=== PATIENT | female | born 1970 | race Caucasian/White ===

== ENCOUNTER 2022-06-18 13:49 | Outpatient (CLI) | payer OTHER, SELFPAY | END 2022-06-18 13:50 | disposition home or self-care (01) | PROVIDERS: PCP Family Medicine; Visit Provider Family Medicine | DX: Z00.00 Encounter for general adult medical examination without abnormal findings (principal); Z13.6 Encounter for screening for cardiovascular disorders; Z11.59 Encounter for screening for other viral diseases; Z12.4 Encounter for screening for malignant neoplasm of cervix | CPT/HCPCS: 80053; 80061; 86803 ==

== ENCOUNTER 2022-10-08 11:25 | Outpatient (CLI) | payer OTHER, SELFPAY ==
--- NOTE | 2022-10-08 11:30 | CRLHL7_ITS ---
For Patients: As a result of the Cures Act, medical imaging exams and procedure reports are released immediately into your electronic medical record. You may view this report before your referring provider. If you have questions, please contact your health care provider. BILATERAL SCREENING MAMMOGRAM WITH COMPUTER-AIDED DETECTION AND TOMOSYNTHESIS TECHNIQUE: CC and MLO views were obtained. These mammographic images have been obtained using full-field digital technique. These mammographic images were interpreted with the benefit of computer-aided detection. Breast Tomosynthesis was used in this interpretation. COMPARISON FILM: 08/21/21, 08/18/20, 06/10/19. FINDINGS: There are scattered areas of fibroglandular density IMPRESSION: There is no radiographic evidence for malignancy. ASSESSMENT: BI-RADS Category 1: Negative RECOMMENDATION: Routine screening mammogram in 1 year. A lay language report of this examination will be provided to the patient. Donovan Ross M.D. Diagnostic Radiologist [email or web address] MARYJANE/juanis / be/Dictated by: Donovan Ross MD @ 10/09/2022 9:10:00 AM (Electronically Signed)
== END 2022-10-08 11:26 | disposition home or self-care (01) ==
LOC: MAMMO 11:29
PROVIDERS: PCP Family Medicine; Visit Provider Family Medicine
DX: Z12.31 Encounter for screening mammogram for malignant neoplasm of breast (principal)
CPT/HCPCS: 77063; 77067

== ENCOUNTER 2023-08-23 14:15 | Outpatient (CLI) | payer OTHER, SELFPAY | END 2023-08-23 14:16 | disposition home or self-care (01) | PROVIDERS: PCP Family Medicine; Visit Provider Family Medicine | DX: Z13.220 Encounter for screening for lipoid disorders (principal); Z13.228 Encounter for screening for other metabolic disorders | CPT/HCPCS: 80053; 80061 ==

== ENCOUNTER 2023-10-10 11:31 | Outpatient (CLI) | payer OTHER, SELFPAY ==
--- NOTE | 2023-10-10 11:30 | CRLHL7_ITS ---
For Patients: As a result of the Cures Act, medical imaging exams and procedure reports are released immediately into your electronic medical record. You may view this report before your referring provider. If you have questions, please contact your health care provider. BILATERAL SCREENING MAMMOGRAM WITH COMPUTER-AIDED DETECTION AND TOMOSYNTHESIS TECHNIQUE: CC and MLO views were obtained. These mammographic images have been obtained using full-field digital technique. These mammographic images were interpreted with the benefit of computer-aided detection. Breast Tomosynthesis was used in this interpretation. COMPARISON FILM: 10/08/22, 08/21/21, 08/18/20. FINDINGS: There are scattered areas of fibroglandular density IMPRESSION: There is no radiographic evidence for malignancy. ASSESSMENT: BI-RADS Category 1: Negative RECOMMENDATION: Routine screening mammogram in 1 year. A lay language report of this examination will be provided to the patient. JADIEL DIOP M.D. Diagnostic/Nuclear Medicine Radiologist [email or web address] ELICIA:[email or web address] Transcribed: 2:29 p.mSergio espinosa/Dictated by: Jadiel Diop MD @ 10/10/2023 12:08:00 PM (Electronically Signed)
--- OUTSIDE RECORDS SUMMARY | 2023-10-10 11:34 | XMS_ITS | Data Portability ---
Author Organization [facility] - [facility], [id number] Address [address] [place] [id number] Care Team Providers Care Technical Services Representative Name Role Phone MORALES BERNARDA Primary Care Provider Assessment Encounter Date Assessment Date Assessment LastModified by Organization Details LastModified Time 07/25/2022 07/25/2022 I spent a total of 20 minutes providing care for this patient including: preparing to see the patient, obtaining a medical history, completing a medically appropriate physical exam, completing documentation of visit information and plans in the EMR, counseling the patient and/or caregiver regarding her diagnosis, treatment options and follow up plans, as well as any necessary communication of subsequent test results to the patient, reviewing medical records, counseling the patient and/or caregiver regarding health maintenance recommendations [email or web address] Not available 07/25/2022 21:22:17 Plan of Treatment Reminders Order Date Submit Date Provider Last Modified By Organization Details Last Modified Time Details Appointments None recorded. Lab None recorded. Referral urologist referral - Please call pt to schedule. Thank you. 2022 023 [email or web address] 7 [facility], [address] [facility] [address], [place], [address], 3 10:17:17 Procedures None recorded. Surgeries exam under anesthesia (SURG) 2022 023 [email or web address] Not available 11:44:20 labiaplasty (SURG) 2022 023 [email or web address] 27 [facility], [address] [facility] [address], [place], [address], 12:28:31 Imaging None recorded. Medication Orders None recorded. Patient TargetsNo targets recorded. Patient Instructions Encounter Date Encounter Id Patient Instructions Last Modified By Organization Details Last Modified Time 07/25/2022 [id number] Documentation assistance provided by Akbar Parker, scribing for {{MD Dr. Bernarda Anaya, DO*}}. The patient and family/friends if present were apprised of the use of a scribe through remote audio and all parties consented to conducting the visit in this manner. [email or web address] Not available 07/25/2022 16:09:15 Reason for Referral Urologist Referral for Incre ased frequency of urination Increased frequency of urination Please call pt to schedule. Thank you. Referring Physician: Bernarda Holm WRAP CHECKER, Encounter Date: 07/25/2022 Results Created Date Observation Date Name Description Value Unit Range Abnormal Flag LastModifiedBy Organization Detail LastModifiedTime Result Notes None recorded. Problems Name Status Onset Date Resolution Date Notes Provider Name and Address Organization Details Recorded Time Rosacea Active Akbar Riser null, [facility] 07/03/2022 13:55:22 Venous varices Active Akbar Riser null, [facility] 07/03/2022 13:55:38 Eczema Active Akbar Riser null, [facility] 07/03/2022 13:56:00 Heart murmur Active Akbar Riser null, [facility] 07/03/2022 13:57:30 Genital warts Active Akbar Riser null, [facility] 07/03/2022 15:16:43 Replacement of mitral valve Active Thickening per echo @ [facility] 05/14/19, EF was 60% and o/w normal Kaitlynhiag Wise null, [facility] [facility] 07/25/2022 12:53:00 Depressive disorder Active PaNhiag Wise null, [facility] [facility] 07/25/2022 13:06:38 Problem Notes None recorded. Procedures Surgical History Date Name Laterality Status Provider Name and Address Organization Details Recorded Time 08/21/19 23 procedure on vulva completed Bryant Whartong null, [facility] 08/29/2022 12:18:40 06/19/19 23 [facility] 07/25/2022 13:05:49 08/22/19 22 Date of Last Mammogram completed Akbar Riser null, [facility] 07/03/2022 15:15:08 03/27/20 16 hysteroscopy with endometrial ablation completed [facility] 07/25/2022 12:53:34 04/01/19 12 excision of labial cyst completed [facility], [facility] 07/25/2022 12:53:45 04/01/18 91 extraction of wisdom tooth completed [facility], [facility] 07/25/2022 12:53:47 04/01/18 82 release of urethral stricture completed [facility] 07/25/2022 12:54:18 Imaging Results None recorded. Procedure Notes None recorded. Medical Equipment None Reported. Allergies Allergen ID Allergen Name Allergen Category Reaction Reaction Severity Criticality Documentation Date Start Date Code Code System Note Provider Name and Address Organization Details Recorded Time 95991 Medicinal product containin g penicilli n and acting as antibacte rial agent (product) medicatio n hives Not available Not available 11/05/2019 79033 05 SNOMED Not Available [facility] 05:09:10 Medications Name Sig Start Date Stop Date Status Note LastModified by Organization Details LastModified Time doxycycli ne hyclate 100 mg capsule TAKE 1 CAPSULE BY MOUTH TWICE DAILY FOR 10 DAYS 07/25 completed Not Available Not Available Not Available ibuprofen 800 mg tablet TAKE 1 TABLET (800 MG) BY MOUTH EVERY 6 HOURS NEEDED FOR OTHER (MILD AND/OR INFLAMMA TORY PAIN) 08/29 completed Not Available Not Available Not Available fluoxetin e 10 mg capsule TAKE 1 CAPSULE BY MOUTH DAILY 07/25 completed heart palpitat ions Not Available Not Available Not Available bupropion HCl XL 150 mg 24 hr tablet, extended release TAKE 1 TABLET BY MOUTH EVERY MORNING. active Not Available Not Available No t Available Paxlovid 300 mg (150 mg x 2)-100 mg tablets in a dose pack TAKE 3 TABLETS BY MOUTH EVERY MORNING AND 3 TABS EVERY EVENING FOR 5 DAYS 07/25 completed Not Available Not Available Not Available Vitals Date Recorded Body height Body mass index (BMI) Body weight Systolic blood pressure Diastolic blood pressure Provider Name and Address Organization Details Last Updated DateTime 07/25/2022 165.1 cm 29 kg/m2 86747.07 g 130 mm[Hg] 74 mm[Hg] Bryant Wise [facility] 3 15:39:53 Date Recorded Body height Body mass index (BMI) Body weight Systolic blood pressure Diastolic blood pressure Provider Name and Address Organization Details Last Updated DateTime 08/29/2022 165.1 cm 28.1 kg/m2 86425.11 g 122 mm[Hg] 76 mm[Hg] Bryant Wise [facility] 3 15:39:35 Social History Question Answer Notes LastModified by Organizat ion Details LastModified Time Tobacco Smoking Status Never Smoker Bryant theodore [facility] 07/25/2022 12:51:48 Do You Have An Advance Directive? Yes Does Have A Health Care Directive Information not available 11/09/2019 What Is Your Level Of Alcohol Consumption? Occasional 1-2 Per Month Information not available 07/25/2022 What Is Your Level Of Caffeine Consumption? Moderate 8-10 Oz Daily Information not available 07/25/2022 Are You Currently Employed? 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 Yes Information not available 07/25/2022 What Is Your Relationship Status? From Pancreatic Cancer 02/16/22. Information not available 07/25/2022 Are You Sexually Active? Yes Information not available 07/25/2022 Do You Use Any Illicit Or Recreational Drugs? No Information not available 07/25/2022 Sex: Unknown Functional Status Question Answer Note LastModified by Organizat ion Details LastModified Time What is your exercise level? Moderate walking/ru nning 3-4 days per week Information not available 07/25/2022 Mental Status None recorded. Family History Relationship Description Onset Age of this Age Resolved Age Notes Sister Asthma Sister Depressive disorder Paternal Aunt Malignant tumor of breast doing genetic testing for H2 gene (noted 07/25/22) Maternal Grandmother Alzheimer's disease Maternal Grandfather Malignant neoplastic disease Father Myocardial infarction Medical History Condition Response Neurology- Headaches/Migraines Y ID- Usual childhood diseases- Chicken Po x Y Dermatology-Eczema/Psoriasis Y Psych- PMS/PMDD Y Gynecological History Statement/Question Response History of Abnormal PAP Yes Total lifetime partners Less than 5 Date of Last Mammogram 08/21/2021 Date of LMP Sexual Orientation Heterosexual Date of Last Diabetes Screening 06/19/19 23 Date of last bone density Sexually Active N Age at Menarche: 9 Date of Last Colonoscopy Age at first intercourse 18 Current Control Method None Urinary Incontinence Symptoms Y What is the patient's current relationsh ip to the practice? Consultation Date of Last Pap Smear 06/18/2022 Date of Last Cholesterol Screening 06/18 Obstetrics History GPAL:G 3 P 2 0 1 2 Type Value Multiple Births 0 Full Term 2 Induced 0 Spontaneous 1 Premature 0 Living 2 Ectopics 0 Total 3 Past Encounters Encounter ID Performer Location Encounter Start Date Encounter Closed Date Diagnosis/Indication Diagnosis SNOMED-CT Code [id number] Bernarda Holm DO [id number] [address] [address] 07/25/2022 15:23:54 07/26/2022 11:42:24 Sebaceous cyst of skin 393725267 Increased frequency of urination [id number] Bernarda Holm DO [id number] [address] [address] 08/29/2022 15:26:37 08/30/2022 10:29:02 Postoperative visit [id number] Health Concerns Section Related Observation LastModified by Organization Shobha barahona LastModified Time None Recorded Concern Status LastModified by Organization Details LastModified Time None Recorded Advance Directives Directive Y: Does have a Health Care D irective Payers Encounter Date Sequence Insurance Name Policy Number Policy Mora Covered Member ID Mora Member ID Guarantor Name 07/25/2022 1 [facility] [id number] Johana Berry Rodriguez [id number] Johana Jamal Michael 08/29/2022 1 [facility] [id number] Johana Berry Michael [id number] Johana Jamal Michael Notes Date Note Type Note Provider Name and Address Organization Details Recorded Time 07/25/2022 text/html HPI Notes: Vaginal/ Vulvar Problem ([facility]) Reported by patient. Referred By: PCP; Dyllan Morales * Location: external; vulvar left * Quality: irritation; cyst * Severity: moderate * Timing: Onset: gradual; constant Notes: - She mentions that if she put it between her fingers or there is rubbing then she has pain. - Denies bleeding or drainage from the cyst. Frequent urination: - Notes that she can urinate and a decent amount will come out, then 10 minutes later she will have to urinate again without drinking anything in that time. When she does urinate the second time, she only urinates a small amount. - She also has urinary urgency, [place] [address] [address], [place], [address], [facility] 07/25/2022 21:24:30 08/29/2022 text/html HPI Notes: Surgery Date: 08/20/22. Patient presents for her first post-operative evaluation. Surgical procedure: Resection of left vulvar cyst and revision of left labial laceration. Indication: 4 mm left labial cyst close to clitoris, seperation of left labia, cervical dysplasia. Pathology findings: benign. The procedure was done by: Bernarda Holm DO. She [place] no [place] [address] [facility],[address], [place], [address], [facility] [facility] 08/29/2022 17:19:17 OBGyn Episode Ob Episode Information Episode Created Date Number of Fetuses Patient Bloodtype Patient rh Status Prepregnancy Weight lbs Domestic Partner Domestic Partner Phone Father Name Senior Property Manager Status 07/26/19 1 CLOSED Fetus Data First Name Last Name Admitted to NICU Weight (g) Sex Living Outcome Pediatric Complications Fetus ID Race Codes Race Delivery Type 3656.85 8704 M Full Term [id number] Jose G Calculation Initial Jose G Date Initial Exam Date Initial Exam Provider Initial Ultrasound Date Last Menstrual Period Date Ultra Sound Weeks Gestation 0 Eighteen To Twenty Week Jose G Update Ultra Sound Date Fundal Height At Umbil Quickening Date Ultra Sound Latest Weeks Gestation Final Jose G Confirmed By Final Jose G Confirmed Date Final Jose G Date Ultra Sound Latest Days Gestation 0 0 Menstrual History Last Menstrual Date Menses Monthly On Bcp Conception Prior Menses Frequency Hcg Plus Date Menarche Onset Age Delivery Information Delivery Date Delivery Type Labor Anesthesia Weeks Gestation Incision Type Labor Labor Length Hrs Delivered By Post Complications Tubal Sterilization Discharge Date Comments 7 40 18 Discharge Information Feeding Method Contraceptive Method Maternal HG B and HCT Levels Ob Episode Information Episode Created Date Number of Fetuses Patient Bloodtype Patient rh Status Prepregnancy Weight lbs Domestic Partner Domestic Partner Phone Father Name Senior Property Manager Status 07/26/19 1 CLOSED Fetus Data First Name Last Name Admitted to NICU Weight (g) Sex Living Outcome Pediatric Complications Fetus ID Race Codes Race Delivery Type 3742.13 4 M Full Term [id number] Jose G Calculation Initial Jose G Date Initial Exam Date Initial Exam Provider Initial Ultrasound Date Last Menstrual Period Date Ultra Sound Weeks Gestation 0 Eighteen To Twenty Week Jose G Update Ultra Sound Date Fundal Height At Umbil Quickening Date Ultra Sound Latest Weeks Gestation Final Jose G Confirmed By Final Jose G Confirmed Date Final Jose G Date Ultra Sound Latest Days Gestation 0 0 Menstrual History Last Menstrual Date Menses Monthly On Bcp Conception Prior Menses Frequency Hcg Plus Date Menarche Onset Age Delivery Information Delivery Date Delivery Type Labor Anesthesia Weeks Gestation Incision Type Labor Labor Length Hrs Delivered By Post Complications Tubal Sterilization Discharge Date Comments 2 40 35 Discharge Information Feeding Method Contraceptive Method Maternal HG B and HCT Levels
--- OUTSIDE RECORDS SUMMARY | 2023-10-10 11:34 | XMS_ITS | Clinical Summary ---
Author Organization [place] Address [facility] [place] [address] Care Team Providers Care Anchor Tack Puller Name Role Phone Unavailable Primary Care Provider Unavailabl e Allergies Active Allergy Reactions Criticality Noted Date Comments Penicillins Hives 09/19/2004 Medications Medication Sig Dispensed Refills Start Date End Date Status buPROPion (WELLBUTRIN XL) 300 MG 24 hr tablet Take 300 mg by mouth every morning Active ibuprofen (ADVIL/MOTRIN) 800 MG tabletIndications: Sebaceous cyst Take 1 tablet (800 mg) by mouth every 6 hours as needed for other (mild and/or inflammatory pain) 30 tablet 08/20/2022 Active senna-docusate (SENOKOT-S/PERICOL NICHOLAS) 8.6-50 MG tabletIndications: Sebaceous cyst Take 1-2 tablets by mouth 2 times daily 30 tablet 08/20/2022 Active ondansetron (ZOFRAN ODT) 4 MG ODT tabIndications:Narayan aceous cyst Take 1 tablet (4 mg) by mouth every 8 hours as needed for nausea 4 tablet 08/20/2022 Active Active Problems Problem Noted Date Diagnosed Date CARDIOVASCULAR SCREENING; LDL GOAL LESS THAN 160 01/29/2010 Immunizations Name Administration Dates Next Due COVID-19 MONOVALENT 12+ (Pfizer) 07/04/2020,05/30 Family History Medical History Relation Comments Alcohol/Drug Maternal Grandfather alcoholism Cancer Maternal Grandfather larynx canc er Cerebrovascular Disease Maternal Grandmother Relation Status Comments Father Alive Maternal Grandfather (Age 78) cancer of larynx, alcoholic and drug addict Maternal Grandmother Alive Mother Alive Paternal Grandfather (Age 81) Paternal Grandmother (Age 79) series of stroke Sister Alive Son Alive [place] Social History Tobacco Use Types Packs/Day Years Used Date Smoking Tobacco: Never Tobacco Cessation:Counseling Given: Not Answered Alcohol Use Standard Drinks/Week Comments Yes 0 (1 standard drink = 0.6 oz pur e alcohol) seldom Adolescent Education Answer Date Record ed Getting School Help Needed Not on file 01/15 Sex and Gender Information Value Date Recorded Sex Assigned at Female 06/09/2020 9:53 PM CLIENT RENEWAL SPECIALIST Gender Identity Female 06/09/2020 9:53 PM CLIENT RENEWAL SPECIALIST Sexual Orientation Straight 06/09/2020 9: 53 PM CLIENT RENEWAL SPECIALIST Last Filed Vital Signs Vital Sign Reading Time Taken Comments Blood Pressure 111/70 08/20/2022 2:00 PM CDT Pulse 64 08/20/2022 2:00 PM CDT Temperature 36 ??C (96.8 ??F) 08/20/2022 1:36 PM CDT Respiratory Rate 16 08/20/2022 1:36 PM CDT Oxygen Saturation 98% 08/20/2022 2:00 PM CDT Inhaled Oxygen Concentration - - Weight 75.8 kg (167 lb) 08/20/2022 11:23 AM CDT Height 165.1 cm (5' 5) 08/20/2022 11:23 AM CDT Body Mass Index 27.79 08/20/2022 11:23 AM CDT Plan of Treatment Health Maintenance Due Date Last Done Comments ADVANCE CARE PLANNING 1970 ANNUAL REVIEW OF HM ORDERS 1970 CT COLONOGRAPHY 1970 FIT 1970 FLEX SIG 1970 GLUCOSE 1970 sDNA (Cologuard) 1970 COLONOSCOPY 1980 COLORECTAL CANCER SCREENING 1980 HIV SCREENING 1985 HEPATITIS C SCREENING 1988 HEPATITIS B IMMUNIZATION (1 of 3 - 19+ 3-dose series) 1989 LIPID 2010 ZOSTER IMMUNIZATION (1 of 2) 2020 YEARLY PREVENTIVE VISIT 05/04/2021 05/04/2020 MAMMO SCREENING 08/18/2022 08/18/2020, 05/30, 05/07/2018, Additional history exists COVID-19 Vaccine (3 - season) 2022 07/04/2020, 06/13/2020 PHQ-2 (once per calendar year) 2023 INFLUENZA VACCINE (Season Ended) 2023 01/14/2020, 12/20/2019, 12/20/2019 DTAP/TDAP/TD IMMUNIZATION (2 - Td or Tdap) 04/02/2024 04/02/2014 PAP 06/18/2025 06/18/2022, 05/31, 07/31/2011, Additional history exists HPV IMMUNIZATION Aged Out No longer e ligible based on patient's age to complete this topic IPV IMMUNIZATION Aged Out No longer e ligible based on patient's age to complete this topic MENINGITIS IMMUNIZATION Aged Out No l onger eligible based on patient's age to complete this topic Pneumococcal Vaccine: Pediatrics (0 to 5 Years) and At-Risk Patients (6 to 64 Years) Aged Out No longer eligible based on patient's age to complete this topic RSV MONOCLONAL ANTIBODY Aged Out No l onger eligible based on patient's age to complete this topic Procedures Procedure Name Priority Date/Time Associated Diagnosis Comments MA SCREENING BILATERAL W/ CECIL Routine 08/18/2020 11:29 AM CDT Visit for screening mammogram ABSTRACT PAP (HIM EXTERNAL RESULT) Routine 07/31/2011 from Last 3 Months or Most Recently Relevant to Health Maintenance Results * MA Screen Bilateral w/Cecil (08/18/2020 11:29 AM CDT) Anatomical Region Laterality Modality Breast Bilateral Mammography Impressions 08/18/2020 2:34 PM CDT IMPRESSION: BI-RADS CATEGORY: 1 - ??Negative RECOMMENDED FOLLOW-UP: Annual Mammography. Exam results letter mailed to patient. REVA VIDAL MD Narrative 08/18/2020 2:34 PM CDT SCREENING MAMMOGRAM, BILATERAL, DIGITAL w/CAD and TOMOSYNTHESIS - 08/18/2020 11:29 AM BREAST SYMPTOMS: Intermittent nipple tenderness. COMPARISON: ??06/10/19, 09/19/2017. BREAST DENSITY: Heterogeneously dense. COMMENTS: No findings of suspicion for malignancy. Procedure Note Reva Vidal MD - 08/18/2020 SCREENING MAMMOGRAM, BILATERAL, DIGITAL w/CAD and TOMOSYNTHESIS - 08/18/2020 11:29 AM BREAST SYMPTOMS: Intermittent nipple tenderness. COMPARISON: 06/10/19, 09/19/2017. BREAST DENSITY: Heterogeneously dense. COMMENTS: No findings of suspicion for malignancy. IMPRESSION: BI-RADS CATEGORY: 1 - Negative RECOMMENDED FOLLOW-UP: Annual Mammography. Exam results letter mailed to patient. REVA VIDAL MD Alessia Santos [facility] [place] ORD ERABLES * ABSTRACT PAP-NO CHARGE (07/31/2011) Impressions MISYS - 07/31/2011 ??Normal pap [facility], 07/2011 Patient Reported LAB - HIM EXTERNAL R ESULT Performing Organization Address City/State/[facility] Co de Phone Number MISYS from Last 3 Months or Most Recently Relevant to Health Maintenance
--- OUTSIDE RECORDS SUMMARY | 2023-10-10 11:34 | XMS_ITS | Encounter Summary ---
Author Organization [place] Address [facility] [place] [address] Care Team Providers Care Mechanical Service Representative Name Role Phone Alessia Santos Unavailable Unavailabl e Alessia Santos Primary Care Provider Unav ailable Encounter Details Date Type Department Care Team (Late st Contact Info) Description 07/05/2020 Documentation Only INTERFACED REPORT Unknown, Provider Social History Tobacco Use Types Packs/Day Years Used Date Smoking Tobacco: Never Alcohol Use Standard Drinks/Week Comments Yes 0 (1 standard drink = 0.6 oz pur e alcohol) seldom Sex and Gender Information Value Date Recorded Sex Assigned at Female 06/09/2020 9:53 PM NURSE EPIDEMIOLOGIST Gender Identity Female 06/09/2020 9:53 PM NURSE EPIDEMIOLOGIST Sexual Orientation Straight 06/09/2020 9: 53 PM NURSE EPIDEMIOLOGIST documented as of this encounter Plan of Treatment Not on file documented as of this encounter Visit Diagnoses Not on filedocumented in this encounter Care Teams Mechanical Service Representative Relationship Specialty Start Date End Date Alessia Santos PCP - General 08/09/12 08/23/22 Alessia Santos 08/03/11 08/23/22 documented as of this encounter
--- OUTSIDE RECORDS SUMMARY | 2023-10-10 11:34 | XMS_ITS | Referral Summary ---
Author Organization [place] Address [facility] [place] [address] Care Team Providers Care Police Service Technician Name Role Phone Unavailable Primary Care Provider [...] Next Due COVID-19 MONOVALENT 12+ (Pfizer) 07/04/2020,05/30 Social History Tobacco Use Types Packs/Day Years Used Date Smoking Tobacco: Never Tobacco Cessation:Counseling Given: Not Answered Alcohol Use Standard Drinks/Week Comments Yes 0 (1 standard drink = 0.6 oz pur e alcohol) seldom Adolescent Education Answer Date Record ed Getting School Help Needed Not on file 01/15 Sex and Gender Information Value Date Recorded Sex Assigned at Female 06/09/2020 9:53 PM EMPLOYMENT ASSISTANT Gender Identity Female 06/09/2020 9:53 PM EMPLOYMENT ASSISTANT Sexual Orientation Straight 06/09/2020 9: 53 PM EMPLOYMENT ASSISTANT Last Filed Vital Signs Vital Sign Reading [...] 08/20/2022 11:23 AM CDT Plan of Treatment Not on file Procedures Procedure Name Priority Date/Time Associated Diagnosis [...] to patient. REVA VIDAL MD Alessia Santos [facility] MAMMOGRAPHY ORD ERABLES * ABSTRACT PAP-NO CHARGE (07/31/2011) Impressions MISYS - 07/31/2011 ??Normal pap [facility], 07/2011 Patient Reported LAB - HIM EXTERNAL R ESULT Performing Organization Address City/State/[facility] Co de Phone Number MISYS from Last 3 Months or Most Recently Relevant to Health Maintenance
--- OUTSIDE RECORDS SUMMARY | 2023-10-10 11:34 | XMS_ITS | Clinical Summary ---
Author Organization [facility] Address [place], [place] [address] Care Team Providers Care Hospital Nurse Liaison Name Role Phone Unavailable Primary Care Provider Unavailabl e Allergies Active Allergy Reactions Criticality Noted Date Comments Penicillins Rash 03/22/2016 Medications Medication Sig Dispensed Refills Start Date End Date Status triamcinolone (ARISTOCORT; KENALOG) 0.1 % creamIndications:Manager Of Tax vern eczema Apply topically to affected area(s) 3 times daily. 80 g 3 05/04/2020 Active metroNIDAZOLE (METROGEL) 0.75 % gelIndications:Rosace a Apply topically to affected area(s) 2 times daily. 45 g 3 05/04/2020 Active Active Problems Problem Noted Date Diagnosed Date Mitral valve problem 05/04/2020 Chronic eczema 05/04/2020 Rosacea 05/04/2020 Varicose veins of both lower extremities 021 Resolved Problems Problem Noted Date Diagnosed Date Resolved Date Menorrhagia 03/27/2016 05/04/2020 Immunizations Name Administration Dates Next Due Influenza, IIV3 (Age >=3 years) 12/20/2019 Tdap 04/02/2014 Family History Medical History Relation Name Comments Coronary artery disease Father massive PR age 70 Good Health Mother Alcoholism Paternal Grandmother Stroke Paternal Grandmother Aneurysm Paternal Uncle Asthma Sister Depression Sister Relation Name Status Comments Father massive PR age 70 Mother Alive Paternal Grandmother Paternal Uncle Sister Alive Social History Tobacco Use Types Packs/Day Years Used Date Smoking Tobacco: Never Smokeless Tobacco: Never Alcohol Use Standard Drinks/Week Comments Yes 0 (1 standard drink = 0.6 oz pur e alcohol) PHQ-2 Answer Date Recorded PHQ-2 TOTAL SCORE 0 05/04/2020 Social Connections Answer Date Recorded Frequency of Communication with Friends and Fami ly Not on file 04/01/2021 Financial Resource Strain Answer Date R ecorded Difficulty of Paying Living Expenses Not on file 04/01/2021 Difficulty of Paying Living Expenses Not on file 04/01/2021 Sex and Gender Information Value Date Recorded Sex Assigned at Not on file Gender Identity Not on file Sexual Orientation Not on file Obstetrics History Last Filed Vital Signs Vital Sign Reading Time Taken Comments Blood Pressure 104/66 05/04/2020 8:26 AM WAREHOUSE MAN Pulse 66 05/04/2020 8:26 AM WAREHOUSE MAN Temperature 36.8 ??C (98.2 ??F) 06/12/2019 3:38 PM CD T Respiratory Rate 12 05/04/2020 8:26 AM WAREHOUSE MAN Oxygen Saturation 98% 06/26/2018 2:54 PM CDT Inhaled Oxygen Concentration - - Weight 73.5 kg (162 lb) 05/04/2020 8:26 AM WAREHOUSE MAN Height 163.8 cm (5' 4.5) 05/04/2020 8:26 AM WAREHOUSE MAN Body Mass Index 27.38 05/04/2020 8:26 AM WAREHOUSE MAN Plan of Treatment Health Maintenance Due Date Last Done Comments HIV for age 15-65 1985 Hepatitis C screening for age 18-79 1988 Zoster (shingles) series for age 50+ (1 of 2) 2020 BMI (ht and wt on same day) for age 18+ 05/04/2021 05/04/2020 Depression screening for age 12+ 05/04/2021 05/04/2020, 05/04/2020 Mammogram for age 45-75 08/18/2021 08/19/19 21 (Verified in Care Everywhere or Patient Record), 05/07/2018 COVID-19 vaccine series ( season) 2022 07/04/2020, 06/13/2020 Influenza for age 50-64 12/01/2023 12/20/2019 Tetanus booster 04/02/2024 04/02/2014 Lipids for age 45-75 05/04/2025 05/04/2020 Pap test for age 21-65 06/18/2025 3, 06/18/2022, 05/17/2021, Additional history exists Colonoscopy through age 75 06/23/2031 06/22/2021 Tdap Completed 04/02/2014 Pneumococcal series for age 6-64 Aged Out No longer eligible based on patient's age to complete this topic Procedures Procedure Name Priority Date/Time Associated Diagnosis Comments HPV THIN PREP Routine 06/18/2022 1:55 PM CDT SCAN-COLONOSCOPY 06/22/2021 11:0 0 AM CDT LIPID PANEL Routine 05/04/2020 8:30 AM WAREHOUSE MAN Screening for lipid disorders SCAN-MAMMOGRAPHY REPORT 05/07/2018 12:00 PM WAREHOUSE MAN from Last 3 Months or Most Recently Relevant to Health Maintenance Results * HPV HIGH RISK (06/18/2022 1:55 PM CDT) TYPE 16 Negative Negative 06/21/2022 11:26 AM CDT [facility] TYPE 18 Negative Negative 06/21/2022 11:26 AM CDT [facility] OTHER HIGH RISK TYPES Negative Negative 06/21/2022 11:26 AM CDT [facility] Other (Cervical/Vagina l) 06/18/2022 1:55 PM CDT 06/20/2022 8:46 AM CDT Narrative [facility] - 06/21/2022 11:26 AM CDT HPV types 16, 18, 31, 33, 35, 39, 45, 51, 52, 56, 58, 59, 66 and 68 DNA were undetectable or below the pre-set threshold. Methodology: Federico Elvie 4800 HPV Test Jhoana Lee MD MICROBIOLOGY [facility] [address] [place] [address], * SCAN-COLONOSCOPY (06/22/2021 11:00 AM CDT) Narrative Procedure Note Donovan Quach MD - 06/22/2021 10:07 AM CDT [facility] [address], [address], [place] [address] Patient Name: Johana Rodriguez Gender: Female Exam Date: 06/22/2021 Visit Number: [id number] Age: 50 Years 5 Months Date of : 1970 Attending MD: Donovan Quach MD Medical Record#: [id number] ----- Procedure: Colonoscopy Indications: Colorectal cancer screening Referring MD: Analisa Amor MD Primary MD: Analisa Amor MD Medications: Intra Procedure Medications: Patient received monitored anesthesia care. Complications: No immediate complications Procedure: An examination of the heart and lungs was performed and found to be withinacceptable limits. The patient was therefore deemed a reasonablecandidate for endoscopy and monitored anesthesia care. The risks and benefits of the procedure were explained to the patient.After obtaining informed consent, the patient received monitoredanesthesia care and I passed the scope without difficulty via the rectum to the ileum. The appendiceal orificeand ic valve were identified. The scope was retroflexed during theexamination The quality of the prep was excellent (Miralax/Gatorade/2tablets Bisacodyl/Magnesium Citrate). This was a complete examination throughout the entire colon. Findings: Normal finding. Location - ileum. Normal finding. Location - entire colon. Anal canal: normal Impression: Colon cancer screening Normal colonoscopy and terminal ileum Plan Repeat colonoscopy in 10 years. If you have signs or symptoms of lower GI illness or a new diagnosis ofcolon cancer in an immediate family member, you should contact your GIprovider or your primary provider to discuss whether your next examshould be repeated sooner. We will attempt to contact you at appropriate intervals via U.S. mail. Wemay not be able to find you or contact you at that time, therefore youshould know that the responsibility for following our recommendation restswith you. If you don't hear from us at the time your procedure is due,please contact our office to schedule an appointment. If your contactinformation should change, please contact our office so that we can updateyour records. Return to your primary care provider as needed. Recommendation Comments: Call if questions or concerns arise in theinterim. Electronically signed by: Donovan Quach MD 06/22/2021 Medications: Medication Dose Sig Description PRN Status PRN Reason Comments doxycycline hyclate 100 mg capsule 100 mg take 1 capsule by oral route 2times every day N taking as directed Noritate 1 % topical cream 1 % apply by topical route every day a thinlayer to the affected area(s) N taking as directed Zyrtec 10 mg capsule 10 mg take 1 Tablet by Oral route once N taking asdirected Allergies: Medication Name Ingredient Reaction Comment Penicillin PENICILLIN Hives Vital Signs: Date Time Systolic Diastolic Height Weight BMI 06/22/2021 1030 AM 116 70 65 in 157.79 26.30 Race: White Preferred Language: Thai cc: Analisa Amor MD cc: Analisa Amor MD [facility] [phone] Donovna Quach MD OTHER * LIPID PANEL (05/04/2020 8:30 AM WAREHOUSE MAN) CHOLESTEROL,TOTAL 191 100 - 199 mg/dL 05/04/2020 12:16 PM WAREHOUSE MAN [facility] TRIGLYCERIDES 70 <150 mg/dL 05/04/2020 12:16 PM WAREHOUSE MAN [facility] HDL CHOLESTEROL 60 >40 mg/dL 12:16 PM WAREHOUSE MAN [facility] NON-HDL CHOLESTEROL 131 <145 mg/dl 05/04/2020 12:16 PM WAREHOUSE MAN [facility] CHOL/HDL RATIO 3.18 <4.50 05/04/2020 12:16 PM WAREHOUSE MAN [facility] LDL CHOLESTEROL 117 <=130 mg/dL 05/04/2020 12:16 PM WAREHOUSE MAN [facility] PROVIDER ORDERED STATUS RANDOM 05/04/2020 12:16 PM WAREHOUSE MAN [facility] Blood BLOOD SPECIMEN / Unknown Venipuncture / Unknown 05/04/2020 8:30 AM WAREHOUSE MAN 05/04/2020 10:54 AM WAREHOUSE MAN Alessia Santos MD CHEMISTRY [facility] [place] [address] [id number] [place] [address] * SCAN-MAMMOGRAPHY REPORT (05/07/2018 12:00 PM WAREHOUSE MAN) Anatomical Region Laterality Modality Other Scanner OTHER from Last 3 Months or Most Recently Relevant to Health Maintenance Advance Directives * Full Code (Latest Code Status on File) Date Activated Date Inactivated Comments 03/27/2016 6:48 AM 03/27/2016 12:03 PM
--- OUTSIDE RECORDS SUMMARY | 2023-10-10 11:34 | XMS_ITS | Encounter Summary ---
Author Organization [place] Address [facility] [place] [address] Care Team Providers Care Oil Paint Shader Name Role Phone Alessia Santos Unavailable Unavailabl e Alessia Santos Primary Care Provider Unav ailable Encounter Details Date Type Department Care Team (Late st Contact Info) Description 06/15/2020 Documentation Only INTERFACED REPORT Unknown, Provider Social History Tobacco Use Types Packs/Day Years Used Date Smoking Tobacco: Never Alcohol Use Standard Drinks/Week Comments Yes 0 (1 standard drink = 0.6 oz pur e alcohol) seldom Sex and Gender Information Value Date Recorded Sex Assigned at Female 06/09/2020 9:53 PM FIRE ALARM INSTALLER Gender Identity Female 06/09/2020 9:53 PM FIRE ALARM INSTALLER Sexual Orientation Straight 06/09/2020 9: 53 PM FIRE ALARM INSTALLER documented as of this encounter Plan of Treatment Not on file documented as of this encounter Visit Diagnoses Not on filedocumented in this encounter Care Teams Oil Paint Shader Relationship Specialty Start Date End Date Alessia Santos PCP - General 08/09/12 08/23/22 Alessia Santos 08/03/11 08/23/22 documented as of this encounter
== END 2023-10-10 11:32 | disposition home or self-care (01) ==
PROVIDERS: PCP Family Medicine; Visit Provider Family Medicine
DX: Z12.31 Encounter for screening mammogram for malignant neoplasm of breast (principal)
CPT/HCPCS: 77063; 77067

== ENCOUNTER 2024-12-15 12:59 | Outpatient (CLI) | payer OTHER, SELFPAY ==
--- NOTE | 2024-12-15 13:00 | CRLHL7_ITS ---
For Patients: As a result of the Century Cures Act, medical imaging exams and procedure reports are released immediately into your electronic medical record. You may view this report before your referring provider. If you have questions, please contact your health care provider. INDICATION: BILATERAL SCREENING MAMMOGRAM, ASYMPTOMATIC 53 Y/O FEMALE COMPARISON: 10/10/2023, 10/08/2022, 08/21/2021 TECHNIQUE: Digital mammogram in CC and MLO projections including computer-aided detection (CAD) and tomosynthesis. BREAST COMPOSITION: The breasts are heterogeneously dense, which may obscure small masses. FINDINGS: No suspicious findings. ASSESSMENT: BI-RADS 1 Negative RECOMMENDATION: Annual screening mammogram. A lay language report of this examination will be provided to the patient. Dictated by: Donovan Ross MD @ 12/16/2024 09:17:20 (Electronically Signed)
== END 2024-12-15 13:00 | disposition home or self-care (01) ==
LOC: MAMMO 13:00
PROVIDERS: PCP Family Medicine; Visit Provider Family Medicine
DX: Z12.31 Encounter for screening mammogram for malignant neoplasm of breast (principal); R92.333 Mammographic heterogeneous density, bilateral breasts
CPT/HCPCS: 77063; 77067

== ENCOUNTER 2025-01-26 09:13 | Outpatient (CLI) | payer OTHER, SELFPAY | END 2025-01-26 09:14 | disposition home or self-care (01) | LOC: NFLDREF 01-27 19:58 | PROVIDERS: PCP Family Medicine; Referring Provider Family Medicine; Visit Provider Family Medicine | DX: Z00.00 Encounter for general adult medical examination without abnormal findings (principal) | CPT/HCPCS: 80053; 80061 ==